=== PATIENT | female | born 1985 | race African-American/Black ===

== ENCOUNTER 2017-01-10 17:20 | Emergency (ER) | payer OTHER ==
[~2017-01-10] VITALS: Ht 157.5 cm; Wt 55.0 kg
[2017-01-11] MEDS ORDERED: IBUPROFEN 800MG TABLET PO ONE (00:15)
[2017-01-11 01:10] VITALS: BP 111/74
== END 2017-01-11 01:55 | disposition home or self-care (01) ==
LOC: ER 17:49
DX: R07.9 Chest pain, unspecified (principal); V43.52XA Car driver injured in collision with other type car in traffic accident, initial encounter; Y93.89 Activity, other specified; Y99.8 Other external cause status; Y92.481 Parking lot as the place of occurrence of the external cause
CPT/HCPCS: 71010; 73562; 81025; 93005; 99284